=== PATIENT | female | born 1970 | race African-American/Black ===

== ENCOUNTER 2016-12-26 11:19 | Emergency (ER) | payer MEDICAID, OTHER ==
[~2016-12-26] VITALS: Ht 162.6 cm; Wt 55.0 kg
[~2016-12-26 11:19] MED LIST: CIP250 PO; FERR-89 PO
[2016-12-26] MEDS ORDERED: FLUCONAZOLE 150 MG TABLET PO ONE (12:30)
[2016-12-26 12:43] VITALS: BP 130/74
== END 2016-12-26 13:22 | disposition home or self-care (01) ==
LOC: EMS 11:20
DX: N76.0 Acute vaginitis (principal); F17.210 Nicotine dependence, cigarettes, uncomplicated
CPT/HCPCS: 81025; 99283

== ENCOUNTER 2019-01-21 11:45 | Emergency (ER) | payer SELFPAY ==
[~2019-01-21] VITALS: Ht 162.6 cm; Wt 54.5 kg
[~2019-01-21 11:45] MED LIST changes: -CIP250 PO; +CIPR-278 PO; -FERR-89 PO; +PANT40TA25 PO; +PHEN-846 PO
[2019-01-21] MEDS ORDERED: ONDANSETRON HCL 4 MG TABLET PO ONE (12:15)
[2019-01-21] MEDS ORDERED: KETOROLAC TROMETHAMINE 60 MG/2 ML VIAL IM ONE (12:15)
[2019-01-21 13:03] VITALS: BP 138/77
== END 2019-01-21 13:03 | disposition home or self-care (01) ==
LOC: EMS 11:47
DX: M13.812 Other specified arthritis, left shoulder (principal); M13.811 Other specified arthritis, right shoulder; R11.10 Vomiting, unspecified; M54.6 Pain in thoracic spine; F17.210 Nicotine dependence, cigarettes, uncomplicated; F12.90 Cannabis use, unspecified, uncomplicated
CPT/HCPCS: 81025; 96372; 99283; J1885; Q0162